=== PATIENT | female | born 1940 | race Asian ===

== ENCOUNTER 2017-08-11 09:42 | Day surgery (SDC) | payer MEDICARE, OTHER ==
[~2017-08-11] VITALS: Ht 157.5 cm; Wt 77.1 kg
[~2017-08-11 09:42] MED LIST: ASPI81CH; ATOR10; Citalopram HBr10 MG; GLIM2; Glucophage1000 MG; LISI20; PANT40
== END 2017-08-11 12:00 | disposition home or self-care (01) ==
LOC: ORSCSDS 09:42
PROVIDERS: Internal Medicine Gastroenterology
PROC: 0D568ZZ Destruction of Stomach, Via Natural or Artificial Opening Endoscopic (ICD-10-PCS; principal; 2017-08-11 11:15)
PROC: 0DB68ZX Excision of Stomach, Via Natural or Artificial Opening Endoscopic, Diagnostic (ICD-10-PCS; principal; 2017-08-11 11:15)
DX: R93.3 Abnormal findings on diagnostic imaging of other parts of digestive tract (principal); Q27.33 Arteriovenous malformation of digestive system vessel; K29.50 Unspecified chronic gastritis without bleeding; K20.9 Esophagitis, unspecified; R13.10 Dysphagia, unspecified; E11.9 Type 2 diabetes mellitus without complications; E78.5 Hyperlipidemia, unspecified; I10 Essential (primary) hypertension; Z87.891 Personal history of nicotine dependence; Z79.84 Long term (current) use of oral hypoglycemic drugs; Z79.899 Other long term (current) drug therapy
CPT/HCPCS: 82947; 88305; 88342; J7120

== ENCOUNTER 2017-09-09 07:22 | Day surgery (SDC) | payer MEDICARE, OTHER ==
[~2017-09-09] VITALS: Ht 157.5 cm; Wt 77.5 kg
== END 2017-09-09 09:25 | disposition home or self-care (01) ==
LOC: ORSCSDS 07:22
PROVIDERS: Ophthalmology
PROC: 08RJ3JZ Replacement of Right Lens with Synthetic Substitute, Percutaneous Approach (ICD-10-PCS; principal; 2017-09-09 09:00)
DX: H25.11 Age-related nuclear cataract, right eye (principal); I10 Essential (primary) hypertension; E11.9 Type 2 diabetes mellitus without complications; Z79.899 Other long term (current) drug therapy; Z79.82 Long term (current) use of aspirin
CPT/HCPCS: 82947; J2250; J3301; J7040; V2632

== ENCOUNTER → 2018-07-06 | Outpatient (CLI) | payer MEDICARE, OTHER ==
[~2018-07-06] MED LIST changes: +ACID REDUCER 1150 MG
[2018-07-06 10:54] LABS: BASOPHILS ABSOLUTE AUTO 0.04 K/mm3 (0.00-0.23); BASOPHILS PERCENT AUTO 0 % (0-2); EOSINOPHILS ABSOLUTE AUTO 0.19 K/mm3 (0.00-0.68); EOSINOPHILS PERCENT AUTO 1 % (0-6); Hemoglobin 14.7 g/dL (11.5-16.0); IMMATURE GRAN ABSOLUTE AUTO 0.05 K/mm3 (0.00-0.10); IMMATURE GRAN PERCENT AUTO 0 % (0-1); LYMPHOCYTES ABSOLUTE AUTO 1.71 K/mm3 (0.84-5.20); LYMPHOCYTES PERCENT AUTO 11 % (21-46); MONOCYTES ABSOLUTE AUTO 0.86 K/mm3 (0.16-1.47); MONOCYTES PERCENT AUTO 6 % (4-13); Mean Corpuscular HGB 29.3 pg (26.0-34.0); Mean Corpuscular HGB Conc 33.4 g/dL (31.5-36.5); Mean Corpuscular Volume 88 fL (80-100); Mean Platelet Volume 10.6 fL (9.1-12.4); NEUTROPHILS ABSOLUTE AUTO 12.63 K/mm3 (1.96-9.15); NEUTROPHILS PERCENT AUTO 82 % (41-73); Platelet Count 291 K/mm3 (150-400); RDW Coefficient Variation 13.7 % (11.7-14.2); Red Blood Cell Count 5.02 M/mm3 (3.80-5.20); White Blood Cell Count 15.48 K/mm3 (4.00-11.30)
[2018-07-06 11:06] LABS: Albumin, Blood 3.8 g/dL (3.4-5.0); Albumin/Globulin Ratio 0.9 (0.8-1.8); Bilirubin, Total 0.9 mg/dL (0.1-1.0); Bun/Creatinine Ratio 16.8 (12.0-20.0); Calcium, Blood 8.7 mg/dL (8.5-10.1); Creatinine, Blood 0.95 mg/dL (0.40-1.00); Globulin, Blood 4.1 g/dL (2.2-4.0); Potassium, Blood 4.2 mmol/L (3.5-5.5); Total Protein, Blood 7.9 g/dL (6.4-8.2)
== END | disposition home or self-care (01) ==
LOC: LAB SHORT 10:49 → LAB EV 10:49
PROVIDERS: Physician Assistant Medical
DX: R06.02 Shortness of breath (principal)
CPT/HCPCS: 80053; 85025

== ENCOUNTER 2020-05-26 17:27 | Inpatient (IN) | payer MEDICARE, OTHER ==
[~2020-05-26] VITALS: Ht 157.5 cm; Wt 71.0 kg
[~2020-05-26 17:27] MED LIST changes: -ASPI81CH; +ASPI81CH PO; +ATOR10 PO; -Citalopram HBr10 MG; +Citalopram HBr10 MG PO; -GLIM2; +GLIM2 PO; -Glucophage1000 MG; -LISI20; +LISI20 PO; +METF500 PO
[2020-05-26 18:46] LABS: BASOPHILS ABSOLUTE AUTO 0.02 K/mm3 (0.00-0.23); BASOPHILS PERCENT AUTO 0 % (0-2); EOSINOPHILS ABSOLUTE AUTO 0.02 K/mm3 (0.00-0.68); EOSINOPHILS PERCENT AUTO 0 % (0-6); Hematocrit 39.7 % (33.0-51.0); IMMATURE GRAN ABSOLUTE AUTO 0.02 K/mm3 (0.00-0.10); IMMATURE GRAN PERCENT AUTO 0 % (0-1); LYMPHOCYTES PERCENT AUTO 12 % (21-46); MONOCYTES ABSOLUTE AUTO 0.41 K/mm3 (0.16-1.47); MONOCYTES PERCENT AUTO 4 % (4-13); Mean Corpuscular HGB 29.4 pg (26.0-34.0); Mean Corpuscular HGB Conc 32.7 g/dL (31.5-36.5); Mean Corpuscular Volume 90 fL (80-100); Mean Platelet Volume 10.1 fL (9.1-12.4); NEUTROPHILS ABSOLUTE AUTO 10.01 K/mm3 (1.96-9.15); NEUTROPHILS PERCENT AUTO 84 % (41-73); Platelet Count 279 K/mm3 (150-400); RDW Coefficient Variation 12.6 % (11.7-14.2); Red Blood Cell Count 4.42 M/mm3 (3.80-5.20); White Blood Cell Count 11.88 K/mm3 (4.00-11.30)
[2020-05-26 19:06] LABS: Alanine Aminotransfer (ALT/SGP 44 U/L (12-78); Albumin, Blood 3.7 g/dL (3.4-5.0); Alk Phos 90 U/L (50-136); Anion Gap 4 mmol/L (6-16); Aspartate Aminotrans (AST/SGOT 23 U/L (12-37); Bilirubin, Total 0.4 mg/dL (0.1-1.0); Blood Urea Nitrogen 12 mg/dL (8-24); Bun/Creatinine Ratio 14.1 (12.0-20.0); CO2, Blood 28 mmol/L (21-32); Calcium, Blood 8.7 mg/dL (8.5-10.1); Chloride, Blood 101 mmol/L (98-108); Creatinine, Blood 0.85 mg/dL (0.40-1.00); Globulin, Blood 3.7 g/dL (2.2-4.0); Glomerular Filtration Rate >60 (60-); Glucose, Blood 158 mg/dL (70-99); Potassium, Blood 4.8 mmol/L (3.5-5.5); Sodium, Blood 133 mmol/L (136-145); Total Protein, Blood 7.4 g/dL (6.4-8.2)
[2020-05-26 19:11] LABS: Source, Urine Clean Catch
[2020-05-26 19:14] LABS: Appearance, Urine Clear (Clear); Bilirubin, Urine Neg (Neg); Blood, Urine Neg (Neg); Color, Urine Yellow (P-Yellow); Glucose Qualitative, Urine Neg (Neg); Ketones, Urine Neg (Neg); Leukocyte Esterase, Urine Neg (Neg); Nitrite, Urine Neg (Neg); Protein, Urine 1+ (Neg); Specific Gravity, Urine 1.005 (1.003-1.022); Urobilinogen, Urine NORM (Normal)
--- NOTE | 2020-05-26 23:19 | NUR ---
2221 PT ARRIVED TO ROOM FROM ER VIA GURNEY IN STABLE CONDITION. REPORTS DIZZYNESS. NO OTHER APPARENT SIGNS OF DISTRESS AT THIS TIME. CALL LIGHT IS IN REACH.
[2020-05-26] MEDS ORDERED: LOSARTAN POTAS100 M1 PO (23:30)
[2020-05-26] MEDS ORDERED: AMLO5 PO (23:30)
--- NOTE | 2020-05-27 00:15 | NUR ---
05/26/13 2345 PT LYING IN BED, AWAKE, WATCHING TV. PT'S BS WAS 168. PT DENIES NEED FOR ANYTHIG AT THIS TIME. NO APPARENT SIGNS OF DISTRESS. CALL LIGHT IS IN REACH.
--- NOTE | 2020-05-27 02:23 | NUR ---
PT LYING IN BED, EYES CLOSED, APPEARS TO BE RESTING. BREATHING IS EVEN, UNLABORED. NO APPARENT SIGNS OF DISTRESS. CALL LIGHT IS IN REACH.
--- NOTE | 2020-05-27 04:31 | NUR ---
PT LYING IN BED, AWAKE, LAB JUST FINISHED DRAWING HER BLOOD. NO APPARENT SIGNS OF DISTRESS. CALL LIGHT IS IN REACH.
--- NOTE | 2020-05-27 04:32 | NUR ---
PT IS AAO X 4, ON RA. REPORTED DIZZYNESS. BS WAS 168
[2020-05-27 04:48] LABS: Hematocrit 35.5 % (33.0-51.0); Hemoglobin 11.6 g/dL (11.5-16.0); Mean Corpuscular HGB 29.4 pg (26.0-34.0); Mean Corpuscular HGB Conc 32.7 g/dL (31.5-36.5); Mean Corpuscular Volume 90 fL (80-100); Mean Platelet Volume 10.3 fL (9.1-12.4); Platelet Count 236 K/mm3 (150-400); RDW Coefficient Variation 12.7 % (11.7-14.2); RDW Standard Deviation 41.9 fL (35.1-46.3); Red Blood Cell Count 3.95 M/mm3 (3.80-5.20)
[2020-05-27 05:08] LABS: Anion Gap 4 mmol/L (6-16); Blood Urea Nitrogen 12 mg/dL (8-24); Bun/Creatinine Ratio 14.6 (12.0-20.0); CO2, Blood 27 mmol/L (21-32); Calcium, Blood 8.1 mg/dL (8.5-10.1); Chloride, Blood 105 mmol/L (98-108); Creatinine, Blood 0.82 mg/dL (0.40-1.00); Glomerular Filtration Rate >60 (60-); Glucose, Blood 126 mg/dL (70-99); Potassium, Blood 4.4 mmol/L (3.5-5.5); Sodium, Blood 136 mmol/L (136-145)
--- NOTE | 2020-05-27 05:36 | NUR ---
PT LYING IN BED, AWAKE, IV WAS BEEPING. NO OTHER APPARENT SIGNS OF DISTRESS. PT DENIED NEED FOR ANYTHING AT THIS TIME. CALL LIGHT IS IN REACH. NO OTHER CHANGES THIS SHIFT.
--- NOTE | 2020-05-27 19:19 | NUR ---
SHIFT SUMMARY AVANI DENIED PAIN AND NAUSEA THIS SHIFT. DID WELL WITH CLEAR LIQUID DIET. GOT INSULIN ONCE THIS SHIFT. DAUGHTER VISITED, PT STATES SHE FEELS LIKE SHE NEEDS HER DAUGHTER PRESENT TO BE ABLE TO MAKE MEDICAL DECISIONS, DAUGHTER ALLOWED TO COME UP EARLY. SBA TO BR. CALL LIGHT IN REACH, REPORT GIVEN TO NIGHT NURSE
--- NOTE | 2020-05-27 23:22 | NUR ---
2018 PT LYING IN BED, REPORTS NAUSEA AND DIZZYNESS WITH AMBULATION, DECLINES NAUSEA MEDS AT THIS TIME. NO OTHER APPARENT SIGNS OF DISTRESS. BS WAS 328. CALL LIGHT IS IN REACH.
--- NOTE | 2020-05-27 23:31 | NUR ---
ASSISTED PT TO BATHROOM AND BACK TO BED AGAIN. PT DENIES ANY DISCOMFORT OR NEED FOR ANYTHING ELSE AT THIS TIME. NO APPARENT SIGNS OF DISTRESS. CALL LIGHT IS IN REACH.
--- NOTE | 2020-05-28 05:49 | NUR ---
0400 PT LYING IN BED, EYES CLOSED, APPEARS TO BE RESTING. BREATHING IS EVEN, UNLABORED. NO APPARENT SIGNS OF DISTRESS. CALL LIGHT IS IN REACH.
--- NOTE | 2020-05-28 05:49 | NUR ---
PT IS AAO X 4, ON RA. BS WAS 328. PT REPORTS SLIGHT NAUSEA WITH AMBULATION BUT DECLINED MEDS.
--- NOTE | 2020-05-28 05:49 | NUR ---
0200 PT LYING IN BED, EYES CLOSED, APPEARS TO BE RESTING. BREATHING IS EVEN, UNLABORED. NO APPARENT SIGNS OF DISTRESS. CALL LIGHT IS IN REACH.
--- NOTE | 2020-05-28 05:50 | NUR ---
PT LYING IN BED AWAKE, DENIES ANY DISCOMFORT OR NEED FOR ANYTHING AT THIS TIME. NO APPARENT SIGNS OF DISTRESS. CALL LIGHT IS IN REACH. NO OTHER CHANGES THIS SHIFT.
--- NOTE | 2020-05-28 18:07 | NUR ---
DISCHARGE SUMMARY PT A/O X4; PLEASANT AND COOPERATIVE WITH CARE. PT IS IND IN THE ROOM. C/O SOME NAUSEA AND DIZZINESS WHEN SHE GETS UP, BUT SYMPTOMS ARE VERY MILD AND DO NOT REQUIRE ANY TREATMENT. HAD MRI TODAY. IV DC'D WNL. DAUGHTER AT THE BEDSIDE FOR THE MAJORITY OF THE DAY. INSTRUCTED TO CONTINUE ALL MEDS WHEN DISCHARGED. [facility] IS TO FOLLOW UP WITH THE PATIENT.
--- NOTE | 2020-05-28 18:17 | NUR ---
ADMIT: 05/26/20 DISCHARGE: 05/28/20 DX: new onset pancreatitis CC:[email or web address] YUE CALL: Met with Dulce and daughter Sara, call Sara for yue call and 1 week appointment. RESIDENCE: home, with daughter Stairs - none CAREGIVER: Sara Saini, Child, DX: DM, dyslipidemia, HTN, systolic murmur, see list DME: none CCM: not interested at this time HOME HEALTH: not home bound SUMMARY: Admit 05/26/20 Discharge 05/28/20 Met with Dulce and daughter sara, daughter is her ride home,. lives with daughter and family, not homebound- does not need home health does not need any dme - walks independantly can afford her medications, good insurance coverage. Discussed yue call from or [facility]u to follow up on her condition and schedule 1 week appointment. cp 1: Acute pancreatitis A/P: mild and will give oral pain meds and IVF, MR is planned. 2: Breast mass in female A/P: biopsy is planned
== END 2020-05-28 17:40 | disposition home or self-care (01) | DRG 439 ==
LOC: ER 17:27 → MEDS 22:28
PROVIDERS: Emergency Medicine; ADMIT Internal Medicine
DX: K85.00 Idiopathic acute pancreatitis without necrosis or infection (principal); K86.2 Cyst of pancreas; E11.9 Type 2 diabetes mellitus without complications; E78.5 Hyperlipidemia, unspecified; N63.0 Unspecified lump in unspecified breast; I10 Essential (primary) hypertension; Z87.891 Personal history of nicotine dependence; Z79.82 Long term (current) use of aspirin; Z79.84 Long term (current) use of oral hypoglycemic drugs
CPT/HCPCS: 36415; 51701; 74176; 74181; 80048; 80053; 82947; 83690; 85025; 85027; 93005; 93010; 96361-59; 96374-59; 96375-59; 99285-25; A9270; J2270; J2405; J7030; J7120

== ENCOUNTER 2020-06-22 09:42 | Day surgery (SDC) | payer MEDICARE, OTHER ==
[~2020-06-22 09:42] MED LIST changes: +AMLO5 PO; +LOSARTAN POTAS100 M1 PO
== END 2020-06-22 23:06 | disposition home or self-care (01) ==
LOC: MOI US 09:42
DX: C50.912 Malignant neoplasm of unspecified site of left female breast (principal); Z17.0 Estrogen receptor positive status [ER+]
CPT/HCPCS: 19083; 77065; 88305; 88342; 88360; A4648

== ENCOUNTER 2020-07-06 09:29 | Day surgery (SDC) | payer MEDICARE, OTHER | END 2020-07-06 22:42 | disposition home or self-care (01) | LOC: MOI US 09:29 | DX: C50.912 Malignant neoplasm of unspecified site of left female breast (principal); R92.8 Other abnormal and inconclusive findings on diagnostic imaging of breast; Z17.0 Estrogen receptor positive status [ER+] | CPT/HCPCS: 19285; 77065; A4648 ==

== ENCOUNTER 2020-07-23 07:11 | Day surgery (SDC) | payer MEDICARE, OTHER ==
[~2020-07-23] VITALS: Ht 157.5 cm; Wt 67.5 kg
--- NOTE | 2020-07-23 08:00 | NUR ---
Ambulatory in Day Surgery Patient confirms NPO status and agrees with scheduled surgery. History, Chart, Medications and Allergies reviewed before start of procedure. Lungs clear T/O to Auscultation. CHEM BG 174.
--- NOTE | 2020-07-23 11:50 | NUR ---
Discharge instructions reviewed with patient. Patient verbalizes understanding. Copy given to patient to take home. Dressing to procedure site clean, dry, intact with no visible drainage, swelling, erythema or bruising noted. Patient States Post-Procedure ride home has been arranged. Discharged via wheelchair to private car for ride home.
== END 2020-07-23 11:54 | disposition home or self-care (01) ==
LOC: ORSCMMR 07:11 → ORD 08:45 → ORSCMMR 08:45
PROVIDERS: Surgery
PROC: 0HBU0ZZ Excision of Left Breast, Open Approach (ICD-10-PCS; principal; 2020-07-23 08:45)
DX: D05.12 Intraductal carcinoma in situ of left breast (principal); I10 Essential (primary) hypertension; E11.9 Type 2 diabetes mellitus without complications; Z87.891 Personal history of nicotine dependence; Z79.84 Long term (current) use of oral hypoglycemic drugs; Z79.899 Other long term (current) drug therapy; Z79.82 Long term (current) use of aspirin
CPT/HCPCS: 76098; 82947; 88307; J0690; J1100; J2250; J2370; J2405; J2704; J3010; J7120

== ENCOUNTER → 2021-06-05 | Outpatient (CLI) | payer MEDICARE, OTHER ==
[2021-06-05 10:08] LABS: BASOPHILS ABSOLUTE AUTO 0.02 K/mm3 (0.00-0.23); BASOPHILS PERCENT AUTO 1 % (0-2); EOSINOPHILS ABSOLUTE AUTO 0.03 K/mm3 (0.00-0.68); EOSINOPHILS PERCENT AUTO 1 % (0-6); Hematocrit 41.2 % (33.0-51.0); Hemoglobin 13.6 g/dL (11.5-16.0); IMMATURE GRAN PERCENT AUTO 0 % (0-1); LYMPHOCYTES ABSOLUTE AUTO 1.13 K/mm3 (0.84-5.20); LYMPHOCYTES PERCENT AUTO 29 % (21-46); MONOCYTES ABSOLUTE AUTO 0.51 K/mm3 (0.16-1.47); MONOCYTES PERCENT AUTO 13 % (4-13); Mean Corpuscular HGB 29.3 pg (26.0-34.0); Mean Corpuscular Volume 89 fL (80-100); Mean Platelet Volume 10.1 fL (9.1-12.4); NEUTROPHILS ABSOLUTE AUTO 2.22 K/mm3 (1.96-9.15); NEUTROPHILS PERCENT AUTO 57 % (41-73); Platelet Count 214 K/mm3 (150-400); RDW Coefficient Variation 13.2 % (11.7-14.2); RDW Standard Deviation 42.5 fL (35.1-46.3); Red Blood Cell Count 4.64 M/mm3 (3.80-5.20); White Blood Cell Count 3.91 K/mm3 (4.00-11.30)
[2021-06-05 10:39] LABS: Anion Gap 7 mmol/L (6-16); Blood Urea Nitrogen 18 mg/dL (8-24); Bun/Creatinine Ratio 24.1 (12.0-20.0); CO2, Blood 29 mmol/L (21-32); Calcium, Blood 8.2 mg/dL (8.5-10.1); Chloride, Blood 100 mmol/L (98-108); Creatinine, Blood 0.75 mg/dL (0.40-1.00); Glomerular Filtration Rate >60 (60-); Glucose, Blood 129 mg/dL (70-99); Sodium, Blood 136 mmol/L (136-145)
== END ==
LOC: LAB SHORT 09:59
PROVIDERS: Physician Assistant Surgical
DX: R07.89 Other chest pain (principal); R06.00 Dyspnea, unspecified; R10.13 Epigastric pain
CPT/HCPCS: 80048; 83690; 84484; 85025; 85379